=== PATIENT | female | born 1965 | race Caucasian/White ===

== ENCOUNTER 2019-03-01 12:22 | Emergency (ER) | payer OTHER ==
[2019-03-01] MEDS ORDERED: fentaNYL 100 MCG/2 ML SDV IVPUSH ONE ×2 (12:39→14:26)
[2019-03-01] MEDS ORDERED: Sodium Chloride 0.9% 10 ML Syringe FLUSH PRN (12:39)
[2019-03-01] MEDS ORDERED: Lactated Ringers 1,000 ML IV SCH (12:45)
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
[2019-03-01] MEDS ORDERED: Iopamidol 612 MG/ML 100 ML Bottle IV ONE (12:56)
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
== END 2019-03-01 15:30 | disposition home or self-care (01) ==
LOC: JP.ED 12:22
DX: S32.019A Unspecified fracture of first lumbar vertebra, initial encounter for closed fracture (principal); S36.892A Contusion of other intra-abdominal organs, initial encounter; E11.9 Type 2 diabetes mellitus without complications; I10 Essential (primary) hypertension; Z88.2 Allergy status to sulfonamides; V86.52XA Driver of snowmobile injured in nontraffic accident, initial encounter
CPT/HCPCS: 36415; 71260; 74177; 80053; 81001; 85025; 96361; 96374; 96376; 99284; J3010; J7050; J7120; Q9967